=== PATIENT | male | born 1965 | race Caucasian/White ===

== ENCOUNTER 2017-10-17 12:38 | Emergency (ER) | payer OTHER ==
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
--- NOTE | 2017-10-17 13:34 | CPEKG ---
Heart Rate: 79 RR Interval: 759 P-R Interval: 172 QRSD Interval: 94 QT Interval: 380 QTC Interval: 436 P [place]: 73 QRS [place] Benedict: 254 T Wave [place] Benedict: 73 EKG Severity - ABNORMAL ECG - EKG Impression: SINUS RHYTHM EKG Impression: LEFT ANTERIOR FASCICULAR BLOCK Electronically Signed By: Yung Parish 17-Oct-2017 14:03:06
[2017-10-17 15:01] VITALS: BP 107/71; PULSE 98; RESP 18; TEMP 97.9; O2SAT 95
== END 2017-10-17 14:00 | disposition home or self-care (01) ==
DX: R20.2 Paresthesia of skin (principal); I25.2 Old myocardial infarction; Z86.73 Personal history of transient ischemic attack (TIA), and cerebral infarction without residual deficits; Z87.891 Personal history of nicotine dependence

== ENCOUNTER 2018-06-03 06:55 | Emergency (ER) | payer MEDICAID, OTHER ==
[~2018-06-03 06:55] MED LIST: AZITHROMYCIN 250 MG TAB PO SCH
--- NOTE | 2018-06-03 07:33 | EDPHY ---
H & P Stated Complaint: Flu sxs/cough~1 wk Time Seen by Provider: 06/03/18 07:25 HPI/ROS: CHIEF COMPLAINT: Cough, fever HISTORY OF PRESENT ILLNESS: 53-year-old male presents with a one-week history of cough. Onset of nasal congestion and a dry cough 1 week ago. The cough has gradually increased and is now productive. Difficulty sleeping because of frequent cough. Associated with 1 day history of fever. No shortness of breath. Tolerating oral fluids well. REVIEW OF SYSTEMS: complete 10 point ROS reviewed and is negative except for the noted elements in the HPI Source: Patient - Personal History Current Tetanus Diphtheria and Acellular Pertussis (TDAP): Yes - Medical/Surgical History Hx Asthma: No Hx Chronic Respiratory Disease: No Hx Diabetes: No Hx Cardiac Disease: Yes Hx Renal Disease: No Hx Cirrhosis: Yes Hx Alcoholism: Yes Hx HIV/AIDS: No Hx Splenectomy or Spleen Trauma: No Other PMH: pmh:[place] x4, CVA x4, alcoholic, drug user, hep c, a fib. psh:left and right shoulder, dental. non compliant on blood thinners. - Social History Smoking Status: Current every day smoker Alcohol Use: Occasionally Additional Social History: Recently discharged from care home - Physical Exam Exam: General Appearance: Alert, pleasant, nontoxic-appearing Eyes: Pupils equal and round, no conjunctival pallor or injection ENT, Mouth: Mucous membranes moist, no pharyngeal erythema Neck: Normal inspection Respiratory: Lungs are clear to auscultation Cardiovascular: Regular rate and rhythm Gastrointestinal: Abdomen is soft and nontender Neurological: A&O, nonfocal, normal gait Skin: Warm and dry Extremities: Normal inspection Psychiatric: Mood and affect normal Constitutional: Initial Vital Signs Temperature (C) 36.7 C 06/03/18 06:58 Heart Rate 92 06/03/18 06:58 Respiratory Rate 18 06/03/18 06:58 Blood Pressure 153/94 H 06/03/18 06:58 O2 Sat (%) 93 06/03/18 06:58 O2 Delivery Mode Room Air Allergies/Adverse Reactions: No Known Allergies Allergy (Verified 06/03/18 06:56) Home Medications: Medication Instructions Recorded Azithromycin [Zithromax] 250 mg PO DAILY #6 tab 06/03/18 Medical Decision Making - Diagnostics Imaging Results: Imaging Impressions Chest X-Ray 11/04/18 07:09 Impression: Clear lungs. No acute process. Imaging: I viewed and interpreted images myself ED Course/Re-evaluation: This patient presents with cough and fever. DuoNeb given, after which the patient felt much better. Decreased cough. Chest remains clear to auscultation. Chest x-ray is unremarkable. However given this patient was just in care home and is currently homeless, will treat him with antibiotics. Prescription for Zithromax dispensed. Albuterol inhaler given. Encouraged patient to follow up with [facility]. Differential Diagnosis: Includes though not limited to pneumonia, COPD exacerbation, pulmonary edema, pneumothorax. - Data Points Laboratory Results: 06/03/18 07:30 Nasal Influenza A PCR NEGATIVE FOR FLU A (NEGATIVE) Nasal Influenza B PCR NEGATIVE FOR FLU B (NEGATIVE) Medications Given: Discontinued Medications Albuterol Sulfate (Proventil Inh Prepack) 1 mdi TAKEHOME EDNOW ONE Stop: 06/03/18 08:34 Last Admin: 06/03/18 08:46 Dose: 1 mdi Albuterol/Ipratropium (Duoneb) 3 ml IH EDNOW ONE Stop: 06/03/18 07:54 Last Admin: 06/03/18 07:57 Dose: 3 ml Departure - Departure Disposition: Home, Routine, Self-Care Clinical Impression: Acute bronchitis Qualifiers: Bronchitis organism: unspecified organism Qualified Code(s): J20.9 - Acute bronchitis, unspecified Condition: Good Instructions: Acute Bronchitis (ED) Additional Instructions: Use the albuterol inhaler as follows: 2 puffs every 6 hr as needed for cough and wheezing. The [facility] has walk-in appointments for the homeless at the following days/locations. No appointment is needed. Monday 8-10 am @ [facility] 11 AM-1 PM @ [facility] Monday 8-10:30 AM @ [facility] Monday 8-10 AM @ [facility] 2-4 PM @ [facility] Monday 8-10 AM @ [facility] Referrals: [facility],. [Clinic] - As per Instructions Prescriptions: Azithromycin [Zithromax] 250 mg PO DAILY #6 tab
[2018-06-03] MEDS ORDERED: IPRATROPIUM/ALBUTEROL 3 ML DEYVIAL IH ONE (07:53)
[2018-06-03] MEDS ORDERED: ALBUTEROL INH PREPACK MDI TAKEHOME ONE (08:33)
[2018-06-03 08:49] VITALS: BP 150/85
== END 2018-06-03 09:17 | disposition home or self-care (01) ==
DX: J20.9 Acute bronchitis, unspecified (principal); F17.200 Nicotine dependence, unspecified, uncomplicated

== ENCOUNTER 2018-06-08 08:51 | Emergency (ER) | payer MEDICAID, OTHER ==
[2018-06-08 08:59] VITALS: BP 138/78
--- NOTE | 2018-06-08 09:08 | EDPHY ---
H & P Stated Complaint: Gvn Zithromax for bronchitis, finished, no change. - Personal History Current Tetanus/Diphtheria Vaccine: Unsure - Medical/Surgical History Hx Asthma: No Hx Chronic Respiratory Disease: No Hx Diabetes: No Hx Cardiac Disease: Yes Hx Renal Disease: No Hx Cirrhosis: Yes Hx Alcoholism: Yes Hx HIV/AIDS: No Hx Splenectomy or Spleen Trauma: No Other PMH: pmh:[place] x4, CVA x4, alcoholic, drug user, hep c, a fib. psh:left and right shoulder, dental. non compliant on blood thinners. - Social History Smoking Status: Current every day smoker Time Seen by Provider: 06/08/18 09:00 HPI/ROS: CHIEF COMPLAINT: "I am still coughing" HISTORY OF PRESENT ILLNESS: 53-year-old male, 1 pack per day tobacco use, seen the ER 5 days ago for complaints of productive cough, prescribed azithromycin had chest x-ray at that time, presents to the ER via private vehicle of continued cough although he notes that his symptoms are overall improved. He denies: Fever, chills, dyspnea, abdominal pain, chest pain, back pain, nausea, vomiting, myalgias. Secondary complaint of 1 year of right inguinal hernia which is easily reducible however he has not sought medical attention as he recently was discharged from intermediate. Currently no complaints of abdominal pain. Bowel movements normal. Passing gas and stool as normal. No testicular pain. Tertiary complaint 1 year of right bicep injury, possibly ruptured bicep tendon. Still able to perform activities of daily living and notes no neurovascular deficits. Not has not sought medical attention for this. PRIMARY CARE PROVIDER: [facility] REVIEW OF SYSTEMS: 10 systems reviewed and negative with the exception of the elements mentioned in the history of present illness PAST MEDICAL & SURGICAL HISTORY: No pertinent medical or surgical history SOCIAL HISTORY: 1 pack per day tobacco. PHYSICAL EXAM (Prior to examination, patient consented to physical exam, hands were washed and my usual and customary physical exam procedures followed) 1) GENERAL: Well-developed, well-nourished, alert and oriented. Appears to be in no acute distress. Appears nontoxic, smiling. 2) HEAD: Normocephalic, atraumatic 3) HEENT: Pupils equal, round, reactive to light bilaterally. Sclera anicteric. Nasopharynx, oropharynx, clear, no lesions. Moist Mucous membranes. No tonsillar enlargement or exudate Ears bilaterally with normal tympanic membranes. No signs of otitis media or otitis externa. 4) NECK: Full range of motion, no meningeal signs. 5) LUNGS: Clear auscultation bilaterally, no wheezes, no rhonchi, no retractions. 6) HEART: Regular rate and rhythm, no murmur, no heave, no gallop. 7) ABDOMEN: No guarding, no rebound, no focal tenderness, right inguinal hernia which is easily reducible, no overlying skin changes or discoloration, negative McBurney's, negative Oliver's, negative Rovsing's, negative peritoneal sign, 8) MUSCULOSKELETAL: Right upper extremity: Noted bicep abnormality with full range of motion, soft compartments, neurovascular intact distally with brisk pulses and capillary refill distally. Moving all extremities, no focal areas of tenderness, no obvious trauma. No peripheral edema or discoloration. 9) BACK: No CVA tenderness, no midline vertebral tenderness, no fluctuance, no step-off, no obvious trauma, no visual or palpable abnormality. 10) SKIN: No rash, no petechiae. 11) Psychiatric: Patient is oriented X 3, there is no agitation. DIFFERENTIAL DIAGNOSIS: In no particular order including but not limited to viral URI, bronchitis, pneumonia, pulmonary embolus (Karen,Gerald Jes) Constitutional: Initial Vital Signs Temperature (C) 36.5 C 06/08/18 08:56 Heart Rate 103 H 06/08/18 08:56 Respiratory Rate 18 06/08/18 08:56 Blood Pressure 138/78 H 06/08/18 08:56 O2 Sat (%) 93 06/08/18 08:56 O2 Delivery Mode Room Air Allergies/Adverse Reactions: No Known Allergies Allergy (Verified 06/08/18 08:55) Home Medications: Medication Instructions Recorded Azithromycin [Zithromax] 250 mg PO DAILY #6 tab 06/03/18 Albuterol [Proventil Inhaler HFA 1 - 2 puffs IH Q4PRN PRN #1 mdi 06/08/18 (*)] Benzonatate [Tessalon Pearles (RX)] 200 mg PO TID PRN #15 cap 06/08/18 Medical Decision Making ED Course/Re-evaluation: 10:09 a.m.: I reviewed the patient's old medical records from his ER visit 5 days ago. I reviewed his chest x-ray results as well. Currently emergency department his lungs are clear bilaterally, is maintain normal saturations. He states that he is feeling improvement after his last dose of azithromycin today. At this time I do not think that further antibiotics or chest x-ray are indicated. Discussed smoking cessation, spent greater than 4 min discussing smoking cessation with the patient. Doubt PE. Recommended continued albuterol and given prescription for Tessalon Perles as well. Given usual and customary URI precautions. The patient notes a secondary complaint of 1 year of right inguinal hernia which is easily reducible. On exam this easily reducible. I do not think that emergent surgery consultation or imaging is indicated. He has been given my usual customary hernia precautions and instructions and given a general surgery referral. Patient notes a tertiary complaint of 1 year of right bicep tendon rupture. He is currently neurovascularly intact with soft compartments. I do not think that emergent orthopedic surgery consultation or imaging is indicated. I provided my usual customary orthopedic precautions and instructions I recommended follow- up with orthopedics and provided him with this referral information. I saw this patient independently based on established practice protocols. Care of patient under supervision of secondary supervising physician Dr Carlo Villarreal . ([facility],Gerald Anrde) I did not see this patient while he was in the emergency department. However his care was discussed with the PA while the patient was in the department. I agree with treatment plan and management (Carlo Villarreal) Departure - Departure Disposition: Home, Routine, Self-Care Clinical Impression: Right inguinal hernia Upper respiratory infection Qualifiers: URI type: unspecified URI Qualified Code(s): J06.9 - Acute upper respiratory infection, unspecified Rupture of right biceps tendon Qualifiers: Encounter type: initial encounter Qualified Code(s): S46.211A - Strain of muscle, fascia and tendon of other parts of biceps, right arm, initial encounter Condition: Good Instructions: Upper Respiratory Infection (ED), Inguinal Hernia (ED), Repairs of the Biceps and Triceps Tendons (DC) Additional Instructions: Return to the emergency department immediately for change in breathing habits, change in voice, change in swallowing habits, change in mental status, or any other symptoms that concern you. Please stop smoking Referrals: [facility],. [Clinic] - As per Instructions Berhane Garcia MD [Medical Doctor] - 5-7 days, call for appt. (Dr. Berhane Garcia is a general surgeon, this is the person to see to discuss your hernia ) Simon Ramesh MD [Medical Doctor] - 5-7 days, call for appt. (Dr. Simon Ramesh is orthopedic surgeon, this is a person to talk about regarding your right arm injury) Prescriptions: Albuterol [Proventil Inhaler HFA (*)] 1 - 2 puffs IH Q4PRN PRN #1 mdi PRN Reason: Cough, Moderate Benzonatate [Tessalon Pearles (RX)] 200 mg PO TID PRN #15 cap PRN Reason: Cough, Moderate
== END 2018-06-08 09:27 | disposition home or self-care (01) ==
DX: J06.9 Acute upper respiratory infection, unspecified (principal); S46.211A Strain of muscle, fascia and tendon of other parts of biceps, right arm, initial encounter; K40.90 Unilateral inguinal hernia, without obstruction or gangrene, not specified as recurrent; F17.200 Nicotine dependence, unspecified, uncomplicated

== ENCOUNTER 2018-06-10 08:40 | Emergency (ER) | payer MEDICAID ==
--- NOTE | 2018-06-10 09:13 | EDPHY ---
General Time Seen by Provider: 06/10/18 09:04 Narrative: CHIEF COMPLAINT: Blood pressure medication refill HISTORY OF PRESENT ILLNESS: Patient presents by private vehicle with complaints of request for refills of his Elavil and metoprolol. He states he has history of hypertension but has been on his meds for approximately 10 days. Yesterday he was feeling some lightheadedness and dizziness that he attributes to not being on his blood pressure medicine. This has happened to him in the past. He had no chest pain of any kind yesterday or today. Today the symptoms are not present he feels well, but he is here asking for refills as he has been unable to see his primary care physician. He has no shortness of breath, chest pain, headache, dizziness, numbness, tingling weakness today. He is only asking for the refills. No modifying factors. No other associated complaints. REVIEW OF SYSTEMS: 10 systems were reviewed and negative with the exception of the elements mentioned in the history of present illness. PCP: Dr. Ryder SPECIALISTS: None currently PAST MEDICAL HISTORY: Hypertension, previous substance abuse. Recent diagnosis of bronchitis here PAST SURGICAL HISTORY: No recent surgical history SOCIAL HISTORY: Daily smoker. Sober from alcohol 1 year. Sober from methamphetamine for 1 year. Currently working. FAMILY HISTORY: Noncontributory EXAMINATION: Vitals: Triage VS reviewed General Appearance: Alert, no distress. Well appearing. Normal conversation Head: normocephalic, atraumatic Eyes: Pupils equal and round, no conjunctival pallor or injection ENT, Mouth: Mucous membranes moist Neck: Normal inspection, supple, non-tender Respiratory: Mild scattered rhonchi. No wheezing. No crackles, diminishment or retractions. Normal work of breathing. Cardiovascular: Regular rate and rhythm. No murmur Gastrointestinal: Abdomen is soft and nontender Back: non-tender, no bony abnormalities Neurological: Cranial nerves 2-12 grossly intact. A&O, nonfocal, normal gait. Excellent strength all 4 extremities. Skin: Warm and dry, no rash Extremities: Nontender, no pedal edema Psychiatric: Mood and affect normal DIFFERENTIAL DIAGNOSES: Including but not limited to hypertension, hypertensive emergency, hypertensive urgency, near-syncope, vertigo MDM: 9:05 a.m. Visit for requested refill of medications. Specifically Elavil 50 mg every night and metoprolol XR 50 mg every morning. He has no other request at this time. He has no symptoms of any kind. He is aware that he will need to follow up with primary care physician for further medication. We discussed strict ED precautions for any chest pain, shortness of breath, lightheadedness, dizziness or neuro complaints as discussed. He is comfortable this plan. Vital signs are within normal limits. He is well-appearing and discharged home stable condition SUPERVISION: This patient was independently evaluated without direct involvement of or examination by the attending physician. CONSULTATION: None - History Smoking Status: Current every day smoker - Objective Vital Signs: Initial Vital Signs Temperature (C) 97.9 F 06/10/18 08:44 Heart Rate 109 H 06/10/18 08:44 Respiratory Rate 18 06/10/18 08:44 Blood Pressure 162/108 H 06/10/18 08:44 O2 Sat (%) 95 06/10/18 08:44 O2 Delivery Mode Room Air Allergies/Adverse Reactions: No Known Allergies Allergy (Verified 06/10/18 08:48) Home Medications: Medication Instructions Recorded Azithromycin [Zithromax] 250 mg PO DAILY #6 tab 06/03/18 Albuterol [Proventil Inhaler HFA 1 - 2 puffs IH Q4PRN PRN #1 mdi 06/08/18 (*)] Benzonatate [Tessalon Pearles (RX)] 200 mg PO TID PRN #15 cap 06/08/18 Amitriptyline HCl [Elavil 50 mg 50 mg PO HS #30 tab 06/10/18 (*)] Metoprolol Succinate Xr [Toprol Xl 50 mg PO DAILY #30 tab.sr 06/10/18 50 mg (*)] Departure - Departure Disposition: Home, Routine, Self-Care Clinical Impression: Bronchitis Hypertension Qualifiers: Hypertension type: essential hypertension Qualified Code(s): I10 - Essential ( primary) hypertension Condition: Good Instructions: DASH Eating Plan (ED), Hypertension (ED) Additional Instructions: 1. Resume medications as prescribed today. You will need to follow up with your primary care physician for further refills. 2. Return to emergency department for any chest pain, shortness of breath or dizziness Referrals: [facility],. [Clinic] - As per Instructions Rajendra Robledo MD [Medical Doctor] - As per Instructions Physician,Emergency DeptMD [Medical Doctor] - As per Instructions (Chest pain , shortness of breath or dizziness) Prescriptions: Amitriptyline HCl [Elavil 50 mg (*)] 50 mg PO HS #30 tab Metoprolol Succinate Xr [Toprol Xl 50 mg (*)] 50 mg PO DAILY #30 tab.sr
[2018-06-10 09:47] VITALS: BP 140/93
== END 2018-06-10 09:40 | disposition home or self-care (01) ==
DX: Z76.0 Encounter for issue of repeat prescription (principal); I10 Essential (primary) hypertension; T46.5X6A Underdosing of other antihypertensive drugs, initial encounter; J40 Bronchitis, not specified as acute or chronic

== ENCOUNTER 2018-06-17 10:00 | Emergency (ER) | payer MEDICAID ==
--- NOTE | 2018-06-17 10:08 | EDPHY ---
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 psh:left and right shoulder - Social History Smoking Status: Heavy smoker Constitutional: Initial Vital Signs Temperature (C) 36.7 C 06/17/18 10:04 Heart Rate 114 H 06/17/18 10:04 Respiratory Rate 20 06/17/18 10:04 Blood Pressure 119/64 06/17/18 10:04 O2 Sat (%) 96 06/17/18 10:04 O2 Delivery Mode Room Air Allergies/Adverse Reactions: No Known Allergies Allergy (Verified 06/10/18 08:48) Home Medications: Medication Instructions Recorded Albuterol [Proventil Inhaler HFA 1 - 2 puffs IH Q4PRN PRN #1 mdi 06/08/18 (*)] Benzonatate [Tessalon Pearles (RX)] 200 mg PO TID PRN #15 cap 06/08/18 Amitriptyline HCl [Elavil 50 mg 50 mg PO HS #30 tab 06/10/18 (*)] Metoprolol Succinate Xr [Toprol Xl 50 mg PO DAILY #30 tab.sr 06/10/18 50 mg (*)] Albuterol [Proventil Inhaler] 1 - 2 puffs IH Q4 #1 mdi 06/17/18 HYDROcodone/HOMATROPINE HYCODA 1 tsp PO Q4-6PRN PRN #120 ml 06/17/18 [Hycodan Syrup (RX)] Sulfamethox/Tmp 800/160 mg 1 tab PO BID #14 tab 06/17/18 [Bactrim Ds] predniSONE 40 mg PO DAILY #10 tab 06/17/18 Medical Decision Making ED Course/Re-evaluation: CHIEF COMPLAINT: Cough HISTORY OF PRESENT ILLNESS: The patient is a 53 y/o male with a 3 week history of cough. He has been seen here several times over the last few weeks for similar symptoms and has completed course of azithromycin and is using an albuterol inhaler. He feels he is not improving. He has associated pain with swallowing. He denies any other associated symptoms. REVIEW OF SYSTEMS: A comprehensive 10 system review of systems is otherwise negative aside from elements mentioned in the history of present illness and medical decision making. PHYSICAL EXAM: HR, BP, O2 Sat, RR. Temp noted General Appearance: Alert, well hydrated, appropriate, and non-toxic appearing. Head: Atraumatic without scalp tenderness or obvious injury Eyes: Pupils equal, round, reactive to light and accommodation, EOMI, no trauma , no injection. Nose: Atraumatic, no rhinorrhea, clear. Throat: There is no erythema or exudates, no lesions, normal tonsils, mucus membranes moist. Neck: Supple, 2+ carotid upstroke, nontender, no lymphadenopathy. Respiratory: Diffuse course rhonchi. No retractions, no distress, no wheezes, and no accessory muscle use. Cardiovascular: Regular rate and rhythm, no murmurs, rubs, or gallops. Gastrointestinal: Abdomen is soft, nontender, non-distended, no masses, no rebound, no guarding, no peritoneal signs. Musculoskeletal: Normal active ROM of all extremities, atraumatic. Neurological: Alert, appropriate, and interactive. Skin: No rashes, good turgor, no nodules on palpation. Past medical history: Cardiac disease, cirrhosis, drug use, alcoholism, OR X 4, CVA X 2 Past surgical history: Should surgeries bilaterally Family history: Non-contributory Social history: He is currently sleeping at the long-term but released during the day , employed by [employer], lives in [place] DIFFERENTIAL DIAGNOSIS: The differential diagnosis for the patient's cough included but was not limited to bronchitis, pneumonia, high altitude pulmonary edema, congestive heart failure, and pulmonary embolus. MEDICAL DECISION MAKING: The patient presents with a 3 week history of cough. He has already completed a course of azithromycin and uses an inhaler. On exam, he has diffuse course rhonchi. Plan for discharge with instructions to take a course of Bactrim, use Hycodan, and prednisone as prescribed, and to purchase mucinex and flonase to improve symptoms. He agrees to this course of action. - Data Points Medications Given: Discontinued Medications Prednisone (Prednisone) 60 mg PO EDNOW ONE Stop: 06/17/18 10:13 Last Admin: 06/17/18 10:21 Dose: 60 mg Departure - Departure Disposition: Home, Routine, Self-Care Clinical Impression: Cough, Bronchitis Condition: Good Instructions: Acute Bronchitis (ED) Additional Instructions: 1. Please continue to take your inhaler as directed (2 puffs every 4 to 6 hours as needed for symptoms). 2. Please purchase mucinex and flonase and take as directed on the box. 3. You have been provided prescriptions for prednisone, Bactrim, and Hycodan syrup. Please fill these medications and take as directed. Be sure to take every dose of Bactrim, even if you improved before the last dose. 4. Follow up with a primary care provider for lack of improvement in 3 to 5 days. 5. Return to the emergency department for any worsening of condition including difficulty breathing or inability to swallow. Referrals: NONE *PRIMARY CARE P,. [Primary Care Provider] - As per Instructions [facility],. [Clinic] - As per Instructions Prescriptions: Albuterol [Proventil Inhaler] 1 - 2 puffs IH Q4 #1 mdi HYDROcodone/HOMATROPINE HYCODA [Hycodan Syrup (RX)] 1 tsp PO Q4-6PRN PRN #120 ml PRN Reason: Cough, Moderate predniSONE 40 mg PO DAILY #10 tab Sulfamethox/Tmp 800/160 mg [Bactrim Ds] 1 tab PO BID #14 tab Report Scribed for: Bernabe Amador Report Scribed by: Skye Singh Date of Report: 06/17/18 Time of Report: 10:35
[2018-06-17] MEDS ORDERED: predniSONE 20 MG TAB PO ONE (10:12)
[2018-06-17 10:27] VITALS: BP 123/88
== END 2018-06-17 10:26 | disposition home or self-care (01) ==
DX: J40 Bronchitis, not specified as acute or chronic (principal); B19.20 Unspecified viral hepatitis C without hepatic coma; F10.10 Alcohol abuse, uncomplicated; F19.90 Other psychoactive substance use, unspecified, uncomplicated; F17.200 Nicotine dependence, unspecified, uncomplicated; Z86.73 Personal history of transient ischemic attack (TIA), and cerebral infarction without residual deficits
CPT/HCPCS: J7512

== ENCOUNTER 2018-07-01 07:19 | Emergency (ER) | payer MEDICAID ==
[2018-07-01 07:27] VITALS: BP 125/88
--- NOTE | 2018-07-01 07:27 | EDPHY ---
H & P Time Seen by Provider: 07/01/18 07:27 HPI/ROS: CHIEF COMPLAINT: Persistent cough HISTORY OF PRESENT ILLNESS: Patient said he has been sick for about a month with a persistent cough. He was seen here on June 03, , and June 17 and June 24. He had negative chest x-ray most recently on June 24. He has been treated with azithromycin and Bactrim as well as steroids and an albuterol inhaler. He continues to smoke about half pack a day. 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 Not associated with hemoptysis or fever or chills, does have head and throat congestion with a bit of a sore throat. Triage notes as nausea and vomiting but he says he really just has retching when he has spasms of cough. No history of aspiration, no chest pain, no ear symptoms. REVIEW OF SYSTEMS: Eye: no change in vision ENT: HPI Cardiac: no chest pain or syncope Pulmonary: HPI Abdomen: HPI no abdominal pain or diarrhea Musculoskeletal: no back pain or leg swelling Skin: no rash Neuro: no headache Constitutional: no fever : no urinary symptoms A comprehensive 10 point review of systems is otherwise negative aside from elements mentioned in the history of present illness. PAST MEDICAL HISTORY: Patient tells me he was hospitalized at [facility] several years ago and was told he had a stroke and "heart attack x4" but on further questioning it sounds like he never had angiogram angioplasty or stenting. He says he had to "be shocked" says possibly had some kind of dysrhythmia arrest. Hepatitis-C and AFib and shoulder surgery. Social history: Currently incarcerated, half pack per day smoking General Appearance: Alert and conversant, cooperative. Eyes: No scleral icterus. ENT, Mouth: Normal mucous membranes. Normal pharynx without erythema or exudate , no trismus, uvula midline. No stridor or drooling. Respiratory: Normal respiratory effort, breath sounds equal, lungs are clear to auscultation. Speaks in full sentences. Cardiovascular: Regular rate and rhythm. Gastrointestinal: Abdomen is soft and non tender. Nor upper abdominal tenderness. Neurological: Alert, face symmetric, normal motor and sensory in extremities. Skin: Warm and dry, no rashes. Musculoskeletal: No peripheral edema. Psychiatric: Not agitated. Emergency Department course/MDM: Patient presents with persistent cough with 2-chest x-rays and has been treated with antibiotics twice as well steroids and inhaler. He is not actively coughing during my interaction with him. He is still smoking and has unavoidable contacts with other people with similar symptoms, both of which are probably contributing to his ongoing symptoms. He does not have indications for antibiotics or hospitalization or further imaging at this time. I think that aspiration and pulmonary embolism and pneumonia and cardiac disease are all unlikely. Mayda Charles, continue with an inhaler, he says he will be released from [facility] in 2 days and will be following up with his primary care doctor in [facility] this week. Patient states he is in agreement with the plan. Smoking Status: Current every day smoker Constitutional: Initial Vital Signs Temperature (C) 37.2 C 07/01/18 07:25 Heart Rate 87 07/01/18 07:25 Respiratory Rate 16 07/01/18 07:25 Blood Pressure 125/88 H 07/01/18 07:25 O2 Sat (%) 94 07/01/18 07:25 O2 Delivery Mode Room Air Allergies/Adverse Reactions: No Known Allergies Allergy (Verified 07/01/18 07:23) Home Medications: Medication Instructions Recorded Albuterol [Proventil Inhaler HFA 1 - 2 puffs IH Q4PRN PRN #1 mdi 06/08/18 (*)] Amitriptyline HCl [Elavil 50 mg 50 mg PO HS #30 tab 06/10/18 (*)] Metoprolol Succinate Xr [Toprol Xl 50 mg PO DAILY #30 tab.sr 06/10/18 50 mg (*)] Albuterol [Proventil Inhaler] 1 - 2 puffs IH Q4 #1 mdi 06/17/18 predniSONE 40 mg PO DAILY #10 tab 06/17/18 predniSONE [Deltasone] 40 mg PO DAILY 5 Days tablet 06/24/18 Benzonatate [Tessalon Pearles (RX)] 100 mg PO Q8 PRN #20 cap 07/01/18 Departure - Departure Disposition: Home, Routine, Self-Care Clinical Impression: Upper respiratory infection Qualifiers: URI type: unspecified viral URI Qualified Code(s): J06.9 - Acute upper respiratory infection, unspecified Condition: Good Instructions: Upper Respiratory Infection (ED) Additional Instructions: Continue to use the albuterol inhaler 2 puffs every 4-6 hours while symptomatic. Please continue to try and reduce your cigarette smoking. Cough medication as needed. Referrals: NONE *PRIMARY CARE P,. [Primary Care Provider] - As per Instructions (Dr. Ryder your PCP in [facility]) Prescriptions: Benzonatate [Tessalon Pearles (RX)] 100 mg PO Q8 PRN #20 cap PRN Reason: cough
== END 2018-07-01 07:45 | disposition home or self-care (01) ==
DX: J06.9 Acute upper respiratory infection, unspecified (principal); F17.200 Nicotine dependence, unspecified, uncomplicated